=== PATIENT | male | born 1975 | race African-American/Black ===

== ENCOUNTER 2017-06-27 22:11 | Inpatient (IN) | payer OTHER, SELFPAY ==
[~2017-06-27 22:11] MED LIST: ISOVUE-370 76%-LOCM 1 ML ONE
[2017-06-27] MEDS ORDERED: Ondansetron HCl/PF 4 MG/2 ML Vial ONE ×2 (22:17→22:54)
[2017-06-27] MEDS ORDERED: Fentanyl 100 MCG/2 ML VIAL ONE (22:25)
[2017-06-27 22:30] LABS: #Basophils 0.1 thou/uL (0.0-0.2); #Eosinphils 0.1 thou/uL (0.0-0.7); #Lymphocytes 2.4 thou/uL (1.20-3.40); #Monocytes 0.4 thou/uL (0.11-0.59); #Neutrophils 3.4 thou/uL (1.40-6.50); %Basophils 1.1 % (0.0-1.0); %Eosinophils 0.9 % (0.0-10.0); %Lymphocytes 37.4 % (21.0-51.0); %Monocytes 6.9 % (0.0-10.0); Hematocrit 39.7 % (42.0-52.0); Mean Platelet Volume 7.3 fL (7.4-10.4); Red Blood Cell (RBC) Count 4.31 mill/uL (4.70-6.10); White Blood Cell (WBC) Count 6.3 thou/uL (4.8-10.8)
[2017-06-27] MEDS ORDERED: Adacel (T-DAP) 0.5 ML VIAL ONE (22:31)
[2017-06-27 22:32] LABS: Anion Gap 19 mmol/L (-14-95); Critical Call POC Critical Value; Lactate 9.85 mmol/L (0.50-2.20); POC Est. GFR-MDRD-African-Amer Greater than 60 (2-60); POC Estimated GFR-MDRD Greater than 60 (2-60); T. Carbon Dioxide 13.1 mmol/L (1.0-85.0); pH (Venous) 7.312 (7.35-7.45); vO2 Saturation-calc 98.2 % (0.0-100.0)
[2017-06-27 22:36] LABS: PTT 26.6 SEC (22.9-36.1); Prothrombin Time 14.9 SEC (12.0-14.7)
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
[2017-06-27 22:46] LABS: Lactic Acid - Sepsis 10.7 mmol/L (0.5-2.2)
[2017-06-27 22:47] LABS: ALT (SGPT) 19 U/L (8-55); AST (SGOT) 27 U/L (5-34); Alkaline Phosphatase 47 U/L (40-150); Anion Gap 19 mmol/L (10-20); BUN (Urea Nitrogen) 9 mg/dL (8.9-20.6); Bilirubin, Total 0.3 mg/dL (0.2-1.2); Calc. Creatinine Clearance 0 mL/min (70-130); Calcium 8.1 mg/dL (7.8-10.44); Carbon Dioxide 13 mmol/L (22-29); Chloride 111 mmol/L (98-107); Estimated GFR-MDRD 83; Globulin 2.8 g/dL (2.4-3.5); Lipase 42 U/L (8-78); Protein, Total 6.3 g/dL (6.0-8.3)
[2017-06-27 22:49] LABS: Bilirubin Negative (Negative); Blood, Urine Moderate (Negative); Glucose, Urine (Dipstick) Negative (Negative); Ketone, Urine Negative (Negative); Nitrite Negative (Negative); Protein, Urine (Dipstick) 30 mg/dL (Neg-Trace)
[2017-06-27 22:54] LABS: Bacteria/HPF None Seen HPF (None Seen); WBC/HPF 21-50 HPF (0-3)
[2017-06-27] MEDS ORDERED: Succinylcholine Chloride 20 MG/ML 10 ml SYRINGE FS ONE (22:54)
[2017-06-27] MEDS ORDERED: Propofol 200 MG/20 ML VIAL ONE (22:54)
[2017-06-27] MEDS ORDERED: Lidocaine 2% PF 10 ML AMP (For Epidural Use) ONE (22:54)
[2017-06-27 23:02] LABS: Hyaline Casts/LPF 0-3 HYALINE CAST LPF (0-3 Hyaline)
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
[2017-06-27 23:04] LABS: Amphetamine Not Detected (NotDetected); Methadone Not Detected (NotDetected); Methamphetamine Not Detected (NotDetected)
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
[2017-06-27] MEDS ORDERED: Potassium Chloride 20 MEQ/100 ML PREMIX BAG ONE (23:14)
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
[2017-06-27] MEDS ORDERED: Dextrose 50% Abboject 50 ML SYRINGE SLOW IVP PRN (23:48)
[2017-06-27] MEDS ORDERED: Ondansetron ODT 4 MG TAB PO PRN (23:48)
[2017-06-27] MEDS ORDERED: Dextrose 5% in Water 1,000 ML IV PRN (23:48)
[2017-06-27] MEDS ORDERED: Sedation Protocol FS ONE (23:48)
[2017-06-27] MEDS ORDERED: Ondansetron HCl/PF 4 MG/2 ML Vial IVP PRN (23:48)
[2017-06-28] MEDS ORDERED: Morphine Sulfate 2 MG/ML SYRINGE SLOW IVP PRN (00:02)
[2017-06-28] MEDS ORDERED: Lorazepam 2 MG/ML VIAL SLOW IVP PRN (00:02)
[2017-06-28] MEDS ORDERED: Fentanyl 20 MCG/ML 250 ML IVPB SCH (00:02)
[2017-06-28] MEDS ORDERED: DISCONTINUE PREVIOUS NARCOTIC PAIN MEDICATIONS AND BENZODIAZEPINES FS SCH (00:02)
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
[2017-06-28] MEDS: Sodium Chloride 0.9% 1,000 ML IV SCH ×3 (00:55→17:40)
[2017-06-28] MEDS: Propofol 1,000 MG/100 ML VIAL IV PRN ×3 (00:59→06:37)
[2017-06-28 01:04] LABS: Oxyhemoglobin 94.2 % (94.0-97.0); Sodium 141 mmol/L (135-148)
[2017-06-28 01:10] LABS: Mechanical Tidal Volume 550 ml; Modified Allen's Test POSITIVE; Pressure Support 10 cmH2O; Vent YES
[2017-06-28 01:11] LABS: Mode SIMV
[2017-06-28 04:59] LABS: #Lymphocytes 0.8 thou/uL (1.20-3.40); #Monocytes 1.1 thou/uL (0.11-0.59); #Neutrophils 12.8 thou/uL (1.40-6.50); %Eosinophils 0.1 % (0.0-10.0); %Lymphocytes 5.1 % (21.0-51.0); %Monocytes 7.5 % (0.0-10.0); Hematocrit 39.7 % (42.0-52.0); Mean Platelet Volume 7.9 fL (7.4-10.4); Red Blood Cell (RBC) Count 4.31 mill/uL (4.70-6.10); White Blood Cell (WBC) Count 14.6 thou/uL (4.8-10.8)
[2017-06-28 05:20] LABS: Anion Gap 14 mmol/L (10-20); BUN (Urea Nitrogen) 9 mg/dL (8.9-20.6); Calc. Creatinine Clearance 120 mL/min (70-130); Calcium 8.5 mg/dL (7.8-10.44); Carbon Dioxide 20 mmol/L (22-29); Chloride 110 mmol/L (98-107); Estimated GFR-MDRD Greater than 90; Magnesium 1.9 mg/dL (1.6-2.6); Phosphorus 2.1 mg/dL (2.3-4.7)
[2017-06-28] MEDS: Folic Acid 1 MG TAB PO SCH (08:01)
[2017-06-28] MEDS ORDERED: Labetalol HCl 100 MG/20 ML VIAL SLOW IVP PRN (08:58)
[2017-06-28] MEDS ORDERED: Potassium Phosphate 30 MMOL, Magnesium Sulfate 2 GM in Sodium Chloride 0.9% 250 ML 250 ML IVPB SCH (09:00)
[2017-06-28] MEDS ORDERED: Magnesium 2 GM/NS 0.9% 100 ML 2 GM in Premix Bag 1 BAG IVPB SCH (09:00)
[2017-06-28] MEDS ORDERED: Senokot S 8.6-50 MG TAB PO SCH (09:00)
[2017-06-28] MEDS ORDERED: Fentanyl 100 MCG/2 ML VIAL SLOW IVP SCH (09:00)
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
[2017-06-28 11:26] VITALS: BMI 29.3
[2017-06-28] MEDS: Acetaminophen 1,000 MG in Premix Bag 1 BAG IVPB SCH ×3 (11:42→23:56)
[2017-06-28] MEDS: Ketorolac Tromethamine 30 MG/ML VIAL IVP SCH ×3 (11:43→23:55)
[2017-06-29] MEDS: Sodium Chloride 0.9% 1,000 ML IV SCH ×3 (02:37→19:36)
[2017-06-29] MEDS: Acetaminophen 1,000 MG in Premix Bag 1 BAG IVPB SCH ×2 (05:20→12:12)
[2017-06-29] MEDS: Ketorolac Tromethamine 30 MG/ML VIAL IVP SCH ×3 (05:20→16:57)
[2017-06-29 08:27] LABS: #Eosinphils 0.1 thou/uL (0.0-0.7); #Lymphocytes 0.9 thou/uL (1.20-3.40); #Monocytes 0.4 thou/uL (0.11-0.59); %Basophils 0.3 % (0.0-1.0); %Eosinophils 0.9 % (0.0-10.0); %Lymphocytes 13.7 % (21.0-51.0); %Monocytes 6.6 % (0.0-10.0); Hematocrit 29.3 % (42.0-52.0); Mean Platelet Volume 7.8 fL (7.4-10.4); Red Blood Cell (RBC) Count 3.14 mill/uL (4.70-6.10); White Blood Cell (WBC) Count 6.3 thou/uL (4.8-10.8)
[2017-06-29] MEDS: Folic Acid 1 MG TAB PO SCH (08:46)
[2017-06-29 08:49] LABS: ALT (SGPT) 24 U/L (8-55); AST (SGOT) 58 U/L (5-34); Alkaline Phosphatase 42 U/L (40-150); Anion Gap 11 mmol/L (10-20); BUN (Urea Nitrogen) 6 mg/dL (8.9-20.6); Bilirubin, Total 0.9 mg/dL (0.2-1.2); Calc. Creatinine Clearance 141 mL/min (70-130); Calcium 8.4 mg/dL (7.8-10.44); Carbon Dioxide 23 mmol/L (22-29); Chloride 110 mmol/L (98-107); Estimated GFR-MDRD Greater than 90; Globulin 2.7 g/dL (2.4-3.5); Magnesium 2.3 mg/dL (1.6-2.6); Protein, Total 5.8 g/dL (6.0-8.3)
[2017-06-29 08:54] LABS: Phosphorus 1.8 mg/dL (2.3-4.7)
[2017-06-29] MEDS ORDERED: traMADol HCl 50 MG TAB PO PRN (22:14)
[2017-06-29] MEDS: Acetaminophen 500 MG TAB PO SCH (22:21)
[2017-06-29] MEDS: traMADol HCl 50 MG TAB PO PRN (22:22)
[2017-06-30] MEDS: Ketorolac Tromethamine 30 MG/ML VIAL IVP SCH ×5 (00:47→23:24)
[2017-06-30] MEDS: Sodium Chloride 0.9% 1,000 ML IV SCH (02:24)
[2017-06-30] MEDS: Acetaminophen 500 MG TAB PO SCH ×4 (05:04→21:53)
[2017-06-30] MEDS: Senokot 8.6 MG TAB PO SCH (08:35)
[2017-06-30] MEDS: traMADol HCl 50 MG TAB PO PRN (08:35)
[2017-06-30] MEDS: Folic Acid 1 MG TAB PO SCH (08:36)
[2017-06-30] MEDS: Docusate 100 MG CAP PO SCH (08:36)
[2017-07-01] MEDS: traMADol HCl 50 MG TAB PO PRN ×3 (04:28→17:16)
[2017-07-01] MEDS: Acetaminophen 500 MG TAB PO SCH ×4 (04:28→22:00)
[2017-07-01] MEDS: Ketorolac Tromethamine 30 MG/ML VIAL IVP SCH (05:21)
[2017-07-01] MEDS: Docusate 100 MG CAP PO SCH (09:40)
[2017-07-01] MEDS: Folic Acid 1 MG TAB PO SCH (09:40)
[2017-07-01] MEDS: Senokot 8.6 MG TAB PO SCH (09:40)
[2017-07-01] MEDS ORDERED: Polyethylene Glycol 3350 17 GM Packet PO SCH ×2 (10:45)
[2017-07-01] MEDS: Ibuprofen 800 MG TAB PO SCH ×2 (14:06→22:00)
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
[2017-07-02] MEDS: Acetaminophen 500 MG TAB PO SCH ×2 (05:14→09:45)
[2017-07-02] MEDS: Ibuprofen 800 MG TAB PO SCH ×2 (05:14→14:09)
[2017-07-02] MEDS ORDERED: Polyethylene Glycol 3350 17 GM Packet PO SCH (09:00)
[2017-07-02] MEDS: Senokot 8.6 MG TAB PO SCH (09:41)
[2017-07-02] MEDS: Folic Acid 1 MG TAB PO SCH (09:41)
[2017-07-02] MEDS: Docusate 100 MG CAP PO SCH (09:42)
[2017-07-02 12:00] VITALS: BP 151/91; TEMP 98.2
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
== END 2017-07-02 15:02 | disposition home or self-care (01) | DRG 329 ==
LOC: EDBD 22:11 → ERS 22:11 → SDC 22:46 → CCU 23:48 → MERGE 23:48 → SURG A 06-28 22:47
PROVIDERS: ADMIT Surgery; ATTEND Surgery
PROC: 0WJP0ZZ Inspection of Gastrointestinal Tract, Open Approach (ICD-10-PCS; principal; 2017-06-27)
PROC: 0DQ80ZZ Repair Small Intestine, Open Approach (ICD-10-PCS; 2017-06-27)
PROC: 5A1945Z Respiratory Ventilation, 24-96 Consecutive Hours (ICD-10-PCS; 2017-06-27)
DX: S31.614A Laceration without foreign body of abdominal wall, left lower quadrant with penetration into peritoneal cavity, initial encounter (principal); K65.9 Peritonitis, unspecified; J96.00 Acute respiratory failure, unspecified whether with hypoxia or hypercapnia; K56.7 Ileus, unspecified; E83.42 Hypomagnesemia; E83.39 Other disorders of phosphorus metabolism; E87.5 Hyperkalemia; I10 Essential (primary) hypertension; X99.1XXA Assault by knife, initial encounter; S36.439A Laceration of unspecified part of small intestine, initial encounter; S41.012A Laceration without foreign body of left shoulder, initial encounter; S41.111A Laceration without foreign body of right upper arm, initial encounter; S36.62XA Contusion of rectum, initial encounter; S21.219A Laceration without foreign body of unspecified back wall of thorax without penetration into thoracic cavity, initial encounter
CPT/HCPCS: 36415; 36416; 70450; 71010; 71260; 72125; 74177; 80048; 80053; 80306; 80307; 81003; 81015; 82330; 82803; 82805; 83605; 83690; 83735; 84100; 85025; 85384; 85610; 85730; 86850; 86900; 86901; 90471; 90715; 94002; 96361; 96374; 96375; G0390; G8978-GP-CK; G8979-GP-CK; G8980-GP-CK; G8987-GO-CJ; G8988-GO-CH; J0131; J1885; J2001; J2060; J2270; J2405; J2704; J3010; J3475; J3480; J7050